=== PATIENT | female | born 1945 | race Caucasian/White ===

== ENCOUNTER 2017-11-05 11:47 | Emergency (ER) | payer MEDICARE ==
--- NOTE | 2017-11-05 12:36 | CT ---
NONCONTRAST HEAD CT: History: Patient fell one week ago. Patient now has a headache. Comparison: None. Technique: Noncontrast head CT is performed from skull base to skull vertex. FINDINGS: No parenchymal hemorrhage. No extraaxial hematoma. No midline shift. Basilar cisterns are patent. Bra in volume is age appropriate. Cortical tay white matter differentiation is preserved. Ventricles and sulci are patent and symmetric. Calvarium is intact. Adequate aeration of the sinuses and mastoid air cells. IMPRESSION: No intracranial post-traumatic sequellae. POS: [facility]
--- NOTE | 2017-11-05 12:37 | RAD ---
TWO VIEWS RIGHT HIP: HISTORY: Injury. Pain. COMPARISON: None. FINDINGS: There is degenerative change of the right hip with loss of joint space height and osteophyte formatio n. Obvious fracture is not appreciated. If the patient is unable to bear weight, consider better in terrogation with CT. Visualized bony pelvis is intact. IMPRESSION: 1. No fracture. If the patient is unable to bear weight, consider CT. 2. Degenerative change of the right hip. POS: [facility]
--- NOTE | 2017-11-05 12:54 | RAD ---
RIGHT KNEE THREE VIEWS: History: Injury and pain. Comparison: None. FINDINGS: No joint effusion. There is diffuse bone demineralization. A normal appearing patella is not apprecia chuckie. There is severe tricompartmental degenerative change. An acute fracture is not identified. 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 IMPRESSION: Chronic changes as defined above. POS: [facility]
== END 2017-11-05 13:12 | disposition home or self-care (01) ==
LOC: MADERS 11:47
DX: S00.83XA Contusion of other part of head, initial encounter (principal); S70.01XA Contusion of right hip, initial encounter; S80.01XA Contusion of right knee, initial encounter; I10 Essential (primary) hypertension; I25.2 Old myocardial infarction; E03.9 Hypothyroidism, unspecified; Z79.01 Long term (current) use of anticoagulants; Z79.899 Other long term (current) drug therapy; W01.10XA Fall on same level from slipping, tripping and stumbling with subsequent striking against unspecified object, initial encounter; Y93.01 Activity, walking, marching and hiking; Y92.009 Unspecified place in unspecified non-institutional (private) residence as the place of occurrence of the external cause
CPT/HCPCS: 70450

== ENCOUNTER 2017-11-30 17:34 | Emergency (ER) | payer MEDICARE ==
[~2017-11-30 17:34] MED LIST: Sodium Chloride Irrig Solution 250 ML BOT ONE
[2017-11-30] MEDS ORDERED: Adacel (T-DAP) 0.5 ML VIAL ONE (18:04)
== END 2017-11-30 18:10 | disposition home or self-care (01) ==
LOC: MADERS 17:34
DX: T54.3X1A Toxic effect of corrosive alkalis and alkali-like substances, accidental (unintentional), initial encounter (principal); T23.632A Corrosion of second degree of multiple left fingers (nail), not including thumb, initial encounter; I25.2 Old myocardial infarction; E03.9 Hypothyroidism, unspecified; E78.00 Pure hypercholesterolemia, unspecified; Z79.899 Other long term (current) drug therapy
CPT/HCPCS: 90471; 90715

== ENCOUNTER 2019-12-14 16:55 | Emergency (ER) | payer MEDICARE ==
[2019-12-14 17:36] LABS: Bilirubin Negative (Negative); Blood, Urine Trace (Negative); Glucose, Urine (Dipstick) Negative (Negative); Leukocyte Large (Negative); Nitrite Positive (Negative); Protein, Urine (Dipstick) Negative (Neg-Trace)
[2019-12-14 17:38] LABS: Bacteria/HPF 4+ HPF (None Seen); Clarity Cloudy (Clear); Squamous Epithelial 0-3 HPF (0-3); WBC/HPF Greater Than 50 HPF (0-3)
[2019-12-14 18:05] LABS: #Basophils 0.1 thou/uL (0.0-0.2); #Eosinphils 0.1 thou/uL (0.0-0.7); #Monocytes 0.6 thou/uL (0.11-0.59); #Neutrophils 4.9 thou/uL (1.40-6.50); %Basophils 0.9 % (0.0-1.0); %Eosinophils 1.8 % (0.0-10.0); %Lymphocytes 25.7 % (21.0-51.0); %Monocytes 7.9 % (0.0-10.0); %Neutrophils 63.8 % (42.0-75.0); Hemoglobin 14.2 g/dL (12.0-16.0); Mean Corpuscular HGB CONC 31.6 g/dL (32.0-36.0); Mean Corpuscular Volume 88.6 fL (78.0-98.0); Mean Platelet Volume 5.9 fL (7.4-10.4); Platelet Count 288 thou/uL (130-400); RBC Distribution Width 12.3 % (11.5-14.5); Red Blood Cell (RBC) Count 5.07 mill/uL (4.20-5.40); White Blood Cell (WBC) Count 7.8 thou/uL (4.8-10.8)
[2019-12-14] MEDS ORDERED: cefTRIAXone\\ROCEPHIN 1 GM VIAL ONE (18:05)
[2019-12-14] MEDS ORDERED: Sodium Chloride 0.9% 100 ML ONE (18:05)
[2019-12-14] MEDS ORDERED: Acetaminophen 500 MG TAB ONE (18:05)
[2019-12-14 18:22] LABS: ALT (SGPT) 18 U/L (8-55); AST (SGOT) 29 U/L (5-34); Alkaline Phosphatase 49 U/L (40-110); Anion Gap 17 mmol/L (10-20); BUN (Urea Nitrogen) 10 mg/dL (9.8-20.1); Bilirubin, Total 0.4 mg/dL (0.2-1.2); Calc. Creatinine Clearance 0 mL/min (70-130); Calcium 9.2 mg/dL (7.8-10.44); Carbon Dioxide 23 mmol/L (23-31); Chloride 106 mmol/L (98-107); Estimated GFR-MDRD 71; Globulin 3.3 g/dL (2.4-3.5); Glucose 98 mg/dL (83-110); Protein, Total 7.3 g/dL (6.0-8.3); Sodium 141 mmol/L (136-145)
--- NOTE | 2019-12-14 19:12 | CT ---
CT ABDOMEN AND PELVIS WITH IV CONTRAST 12/14/2019 CLINICAL INFORMATION: Left lower quadrant abdominal pain for 5 days. COMPARISON: None. Technique: Multiple contiguous axial CT images are obtained through the abdomen and pelvis with IV contrast. Cor onal reformatted images are provided. FINDINGS: Lower Chest: There are linear bibasilar densities probably due to mild chronic lung changes and atele ctasis. Vessels: Vascular calcifications are seen in the abdominal aorta and involving the coronary arteries. Abdomen: Portal vein:Patent Gallbladder: Within normal limits for CT imaging. Liver: Diminished attenuation suggesting diffuse fatty infiltration. A 2 cm oval-shaped hypodense les ion is seen in the left hepatic lobe demonstrating fluid attenuation likely due to a cyst. Spleen: within normal limits. Pancreas: within normal limits. Adrenals: within normal limits. Kidneys: Right kidney is rotated with a few subcentimeter too small to characterize hypodense lesions in the right kidney. Left kidney has a normal CT appearance. Bowel: A large duodenal diverticulum is seen involving the third portion of the duodenum. A few scatt ered colonic diverticula are seen throughout the colon greatest involving the sigmoid colon. There is an ovoid area of fat density with thin increased density rim and adjacent inflammatory changes loc ated just anterior to the descending colon. The anterior wall of the colon in this region demonstrates minimal wall thickening, but the colon is decompressed in this region. These findings ar e most likely attributable to epiploic appendagitis. Omental infarction is a possibility but thought less likely. This ovoid area measures 3 cm. Appendix: The appendix is visualized and normal in caliber. Peritoneum: No ascites or free air; no fluid collection. Mesentery and Retroperitoneum: No enlarged mesenteric or retroperitoneal lymph nodes. Abdominal Wall: Tiny fat-containing umbilical hernia. Pelvis: Reproductive Organs: Evidence of hysterectomy. Pelvis within normal limits. Bladder: within normal limits. Bones: Degenerative changes are seen in the spine. There is prominent right hip osteoarthritis. IMPRESSION: 1. Findings most likely attributable to epiploic appendagitis just anterior to the mid descending col on. Omental infarction is a differential consideration but thought less likely. While other etiologies such as diverticulitis is a possibility, this is much less likely as this area demonstrate s fat density centrally with surrounding inflammatory changes. This does not have imaging findings of diverticulitis. 2. Fatty infiltration the liver with left hepatic lobe cyst. 3. Duodenal diverticulum. 4. Hysterectomy.
== END 2019-12-14 19:37 | disposition home or self-care (01) ==
LOC: MADERS 16:55
DX: K63.89 Other specified diseases of intestine (principal); I10 Essential (primary) hypertension; I25.2 Old myocardial infarction; E03.9 Hypothyroidism, unspecified; E78.00 Pure hypercholesterolemia, unspecified; Z79.82 Long term (current) use of aspirin; Z86.73 Personal history of transient ischemic attack (TIA), and cerebral infarction without residual deficits; Z79.899 Other long term (current) drug therapy
CPT/HCPCS: 36415; 74177; 80053; 81003; 81015; 83605; 85025; 87077; 87086; 87186; 96365; J0696; J3490